=== PATIENT | female | born 1970 | race Caucasian/White ===

== ENCOUNTER → 2019-04-22 | Outpatient (CLI) | payer OTHER ==
[~2019-04-22] MED LIST: ALBU90I; ALBU90OI INH; AZIT250 PO; Cleocin HCl300 MG PO; NEOPOLHCSU RIGHTEAR
== END | disposition home or self-care (01) ==
LOC: LAB 12:31 → LAB SHORT 12:31
DX: R30.0 Dysuria (principal)
CPT/HCPCS: 87077; 87086; 87186